=== PATIENT | female | born 1980 | race Caucasian/White ===

== ENCOUNTER 2020-07-19 19:00 | Inpatient (IN) | payer OTHER ==
[2020-07-19 20:39] VITALS: BMI 41.1
[2020-07-19] MEDS ORDERED: PENICILLIN G POTASSIUM 20,000,000 (20Mm) UNITS VIAL IVPB ONE (21:15)
[2020-07-19] MEDS: DEXTROSE 5%-NORMAL SALINE 1,000 ML IV SCH (21:30)
[2020-07-19 21:48] LABS: BASO % 0.4 % (0-2.0); EOS % 0.7 % (0-4.5); HEMOGLOBIN 13.5 GM/dL (10.7-15.3); MCH 32.1 pg (25.7-33.7); MCHC 33.8 g/dl (32.0-36.0); MEAN CELL VOLUME 94.9 fl (80-96); MEAN PLT VOLUME 10.1 fl (7.5-11.1); MONO % 6.4 % (3.8-10.2); NEUT % 72.5 % (42.8-82.8); PLATELET COUNT 194 K/MM3 (134-434); RBC 4.21 M/mm3 (3.60-5.2); RDW 13.5 % (11.6-15.6); WHITE BLOOD COUNT 7.1 K/mm3 (4.0-10.0)
[2020-07-19 21:52] LABS: BLOOD UREA NITROGEN 11.7 mg/dL (7-18)
[2020-07-19 21:55] LABS: CREATININE 0.6 mg/dL (0.55-1.3)
[2020-07-19 21:56] LABS: INR 0.82 (0.83-1.09); PROTHROMBIN TIME (PATIENT) 10.1 SEC (9.7-13.0)
[2020-07-19] MEDS ORDERED: SODIUM CHLORIDE IVPB ONE (22:00)
[2020-07-19] MEDS ORDERED: PENICILLIN POTASSIUM IVPB ONE (22:00)
[2020-07-19 22:46] LABS: HIV INTERPRETATION NEGATIVE (NEGATIVE)
[2020-07-19] MEDS: OXYTOCIN 30 UNITS in 0.9% NS 30 UNIT/500 ML INFUS.BAG IVPB SCH (23:00)
[2020-07-19] MEDS ORDERED: OXYTOCIN 30 UNITS in 0.9% NS 30 UNIT/500 ML INFUS.BAG IVPB ONE (23:02)
[2020-07-19] MEDS ORDERED: PROMETHAZINE HCL 25 MG/1 ML VIAL IVPUSH ONE (23:16)
[2020-07-19] MEDS ORDERED: BUTORPHANOL TARTRATE 1 MG/ML VIAL IVPB ONE (23:16)
[2020-07-20] MEDS: SODIUM CHLORIDE IVPB SCH ×5 (03:30→20:30)
[2020-07-20] MEDS: PENICILLIN POTASSIUM IVPB SCH ×5 (03:30→20:30)
[2020-07-20] MEDS ORDERED: BUTORPHANOL TARTRATE 2 MG/ML VIAL ONE ×2 (03:46→14:32)
[2020-07-20] MEDS ORDERED: PROMETHAZINE HCL 25 MG/1 ML VIAL ONE ×2 (03:47→14:32)
[2020-07-20] MEDS ORDERED: BUTORPHANOL TARTRATE 2 MG/ML VIAL IVPUSH ONE (15:15)
[2020-07-20] MEDS ORDERED: PROMETHAZINE HCL 25 MG/1 ML VIAL IVPUSH ONE (15:15)
[2020-07-20] MEDS ORDERED: PCA PUMP NR ONE (19:34)
[2020-07-20] MEDS ORDERED: FENTANYL/BUPIVACAINE/NS/PF - PCEA - 50 ML DISP.SYRIN EP ONE ×2 (19:35→23:32)
[2020-07-20] MEDS ORDERED: ELECTROLYTE-148 SOLN 500 ML IV ONE (19:40)
[2020-07-20] MEDS ORDERED: NALOXONE HCL 0.4 MG/ML VIAL IVPUSH PRN (20:43)
[2020-07-20] MEDS ORDERED: FENTANYL/BUPIVACAINE/NS/PF - PCEA - 50 ML DISP.SYRIN EP SCH (20:45)
[2020-07-20] MEDS: DEXTROSE 5%-NORMAL SALINE 1,000 ML IV SCH (23:00)
[2020-07-20] MEDS ORDERED: ACETAMINOPHEN 325 MG TABLET (FP) ONE (23:07)
[2020-07-21] MEDS: PENICILLIN POTASSIUM IVPB SCH ×7 (00:30→21:41)
[2020-07-21] MEDS: SODIUM CHLORIDE IVPB SCH ×7 (00:30→21:41)
[2020-07-21] MEDS ORDERED: FENTANYL/BUPIVACAINE/NS/PF - PCEA - 50 ML DISP.SYRIN EP ONE ×3 (04:33→15:04)
[2020-07-21 08:27] LABS: POC NITRAZINE POS
[2020-07-21] MEDS: OXYTOCIN 30 UNITS in 0.9% NS 30 UNIT/500 ML INFUS.BAG IVPB SCH (09:15)
[2020-07-21] MEDS ORDERED: PCA PUMP NR ONE (09:43)
[2020-07-21] MEDS ORDERED: BUPIVACAINE HCL/PF 0.25% (2.5MG/ML) 10 ML VIAL ONE (10:29)
[2020-07-21] MEDS ORDERED: INSULIN (NOVOLOG) ASPART 100 UNITS/ML 10ML VIAL SQ ONE (11:35)
[2020-07-21] MEDS ORDERED: LIDOCAINE HCL 1% PRESERVATIVE FREE - 30ML VIAL ONE (15:37)
[2020-07-21] MEDS ORDERED: OXYTOCIN 20 UNITS in 0.9% NS 20 UNIT/1,000 ML INFUS.BAG IV ONE (15:37)
[2020-07-21] MEDS ORDERED: OXYTOCIN 20 UNITS in 0.9% NS 20 UNIT/1,000 ML INFUS.BAG IV SCH (17:00)
[2020-07-21 17:58] LABS: CORD BASE EXCESS -7.4 mmol/L (0-2); CORD HCO3 22.5 mmHg (20-29); CORD HCO3 22.6 mmHg (20-29); CORD PCO2 51.4 mmHg (30-78); CORD PCO2 64.1 mmHg (30-78); CORD pH 7.164 (7.14-7.44); CORD pH 7.261 (7.14-7.44)
[2020-07-21] MEDS: SODIUM CHLORIDE 1,000 ML IV SCH ×3 (20:26→21:40)
[2020-07-21] MEDS: DEXTROSE 5%-NORMAL SALINE 1,000 ML IV SCH (21:33)
[2020-07-22] MEDS: IBUPROFEN 600 MG TABLET (FP) PO PRN ×2 (00:33→20:52)
[2020-07-23 08:22] LABS: BASO % 0.6 % (0-2.0); EOS % 1.9 % (0-4.5); HEMOGLOBIN 9.9 GM/dL (10.7-15.3); LYMPH % 23.4 % (8-40); MCH 32.6 pg (25.7-33.7); MCHC 34.2 g/dl (32.0-36.0); MEAN CELL VOLUME 95.2 fl (80-96); MEAN PLT VOLUME 9.6 fl (7.5-11.1); MONO % 5.9 % (3.8-10.2); NEUT % 68.2 % (42.8-82.8); PLATELET COUNT 140 K/MM3 (134-434); RBC 3.04 M/mm3 (3.60-5.2); RDW 13.8 % (11.6-15.6); WHITE BLOOD COUNT 6.6 K/mm3 (4.0-10.0)
[2020-07-23 10:46] VITALS: BP 119/59; PULSE 62; TEMP 98.4
[2020-07-23] MEDS: IBUPROFEN 600 MG TABLET (FP) PO PRN (11:03)
== END 2020-07-23 13:00 | disposition home or self-care (01) | DRG 560 ==
LOC: JLDR 19:00 → UNDOADMIN 19:23 → JLDR 19:23 → J3W 07-21 19:45
PROVIDERS: ADMIT Obstetrics & Gynecology Maternal & Fetal Medicine; ATTEND Obstetrics & Gynecology Maternal & Fetal Medicine
PROC: 3E033VJ Introduction of Other Hormone into Peripheral Vein, Percutaneous Approach (ICD-10-PCS; principal; 2020-07-19)
PROC: 4A1H7CZ Monitoring of Products of Conception, Cardiac Rate, Via Natural or Artificial Opening (ICD-10-PCS; 2020-07-20)
PROC: 10H073Z Insertion of Monitoring Electrode into Products of Conception, Via Natural or Artificial Opening (ICD-10-PCS; 2020-07-20)
PROC: 10E0XZZ Delivery of Products of Conception, External Approach (ICD-10-PCS; 2020-07-21)
DX: O41.03X0 Oligohydramnios, third trimester, not applicable or unspecified (principal); Z37.0 Single live birth; O24.424 Gestational diabetes mellitus in childbirth, insulin controlled; E66.01 Morbid (severe) obesity due to excess calories; O99.214 Obesity complicating childbirth; O42.02 Full-term premature rupture of membranes, onset of labor within 24 hours of rupture; O34.219 Maternal care for unspecified type scar from previous cesarean delivery; Z3A.39 39 weeks gestation of pregnancy
CPT/HCPCS: 36415; 36600; 59409; 80048; 82803; 82962; 83986-QW; 85025; 85610; 85730; 86762; 86780; 86850; 86900; 86901; 87389; C9803; U0003